=== PATIENT | female | born 1965 | race Caucasian/White ===

== ENCOUNTER 2020-03-13 11:32 | Emergency (ER) | payer MEDICAID ==
[~2020-03-13] VITALS: Ht 170.2 cm; Wt 78.2 kg
[2020-03-13 11:43] VITALS: Ht 170.2 cm; Wt 78.2 kg
[2020-03-13] MEDS ORDERED: ALEVE220 MG PO (11:45)
[2020-03-13] MEDS ORDERED: GLUCOPHAGE500 MG PO (11:46)
[2020-03-13 12:14] LABS: BASOPHILS 0.5 % (0-2); EOSINOPHILS 2.3 % (0-7); HEMATOCRIT 43.8 % (36.0-48.0); HEMOGLOBIN 15.4 g/dL (12-16); IMMATURE GRANULOCYTES 0.1 % (0-5); LYMPHOCYTES 33.5 % (15-50); MCH 32.8 pg (26.0-34.0); MCHC 35.2 g/dL (31.0-37.0); MCV 93.2 fL (80.0-100.0); MEAN PLATELET VOLUME 9.9 fL (7.4-10.4); MONOCYTES 6.8 % (2-11); NEUTROPHILS 56.8 % (40-80); PLATELET COUNT 214 10x3/uL (130-400); RDW 12.3 % (11.5-14.5); WBC 9.4 10x3/uL (4.8-10.8)
[2020-03-13 12:22] LABS: CALC OSMOLALITY 288 mosm/kg (275-300); CALCIUM 9.6 mg/dL (8.5-10.1); CARBON DIOXIDE 27.7 mmol/L (21.0-32.0); CHLORIDE - SERUM 100 mmol/L (98-107); CREATININE - SERUM 0.7 mg/dL (0.6-1.3); GLUCOSE 311 mg/dL (74-106); POTASSIUM - SERUM 3.6 mmol/L (3.5-5.1); SODIUM 138 mmol/L (136-145); UREA NITROGEN 16 mg/dL (7-18); eGFR NON AFRICAN AMERICAN > 90 mL/min (90-120)
[2020-03-13 12:28] LABS: ALBUMIN 4.1 g/dL (3.4-5.0); ALKALINE PHOSPHATASE 90 U/L (30-120); ALT (SGPT) 16 U/L (10-68); BILIRUBIN - TOTAL 0.28 mg/dL (0.2-1.3); MAGNESIUM - SERUM 2.1 mg/dL (1.8-2.4); PROTEIN - SERUM 7.9 g/dL (6.4-8.2)
[2020-03-13 14:11] LABS: BILIRUBIN NEGATIVE (NEGATIVE); KETONE NEGATIVE (NEGATIVE); NITRITE NEGATIVE (NEGATIVE); UROBILINOGEN NORMAL (NORMAL)
[2020-03-13 14:13] LABS: BACTERIA FEW /hpf (NONE SEEN); EPITHELIAL CELLS 0-5 /hpf (0-5); RED CELLS - URINE 0-5 /hpf (0-5); WHITE CELLS - URINE 0-5 /hpf (0-5)
[2020-03-13] MEDS ORDERED: GLUCOPHAGE1000 MG PO (14:30)
[2020-03-13] MEDS ORDERED: MACROBID100 MG PO (14:30)
[2020-03-13] MEDS ORDERED: KEFLEX500 MG PO (14:30)
[2020-03-13 15:00] VITALS: BP 139/61
== END 2020-03-13 15:00 | disposition home or self-care (01) ==
LOC: D.ER 11:32
PROVIDERS: Family Medicine
DX: E11.65 Type 2 diabetes mellitus with hyperglycemia (principal); N39.0 Urinary tract infection, site not specified; R09.02 Hypoxemia; Z79.84 Long term (current) use of oral hypoglycemic drugs